=== PATIENT | male | born 1995 | race African-American/Black ===

== ENCOUNTER 2021-01-18 05:05 | Emergency (ER) | payer SELFPAY ==
[2021-01-18] MEDS ORDERED: Lidocaine 1% w/Epinephrine 1:100K 20 ML VIAL ONE (05:30)
== END 2021-01-18 06:01 | disposition home or self-care (01) ==
LOC: CSHERS 05:05
DX: L02.31 Cutaneous abscess of buttock (principal)
CPT/HCPCS: 10060